=== PATIENT | female | born 1975 | race Caucasian/White ===

== ENCOUNTER → 2023-12-09 15:10 | Outpatient (REF) | payer OTHER, SELFPAY | LOC: HWWDC 15:10 | PROVIDERS: ATTENDING PHYSICIAN Obstetrics & Gynecology; FAMILY PHYSICIAN Family Medicine | DX: Z12.31 Encounter for screening mammogram for malignant neoplasm of breast (principal) | CPT/HCPCS: 77063; 77067 ==

== ENCOUNTER → 2023-12-17 15:30 | Outpatient (REF) | payer OTHER, SELFPAY ==
[2023-12-17 16:35] LABS: Potassium 4.4 mmol/L (3.5-5.1)
== END ==
LOC: REG 15:30
PROVIDERS: ATTENDING PHYSICIAN Family Medicine
DX: E87.5 Hyperkalemia (principal)
CPT/HCPCS: 36415; 84132

== ENCOUNTER → 2025-02-09 15:01 | Outpatient (REF) | payer OTHER, SELFPAY | LOC: HWWDC 15:01 | PROVIDERS: ATTENDING PHYSICIAN Obstetrics & Gynecology; FAMILY PHYSICIAN Family Medicine | DX: Z12.31 Encounter for screening mammogram for malignant neoplasm of breast (principal) | CPT/HCPCS: 77063; 77067 ==

== ENCOUNTER → 2025-06-09 07:41 | Outpatient (REF) | payer OTHER, SELFPAY | LOC: HWEVLT 07:41 | PROVIDERS: ATTENDING PHYSICIAN Radiology Diagnostic Radiology | DX: I83.892 Varicose veins of left lower extremity with other complications (principal) | CPT/HCPCS: 93971 ==